=== PATIENT | female | born 1955 | race Caucasian/White ===

== ENCOUNTER 2016-10-16 15:22 | Emergency (ER) | payer OTHER ==
[~2016-10-16] VITALS: Ht 167.6 cm; Wt 55.9 kg
[~2016-10-16 15:22] MED LIST: ALPR0.5T8 PO; ALPR1TAB7 PO; BUPR100T6 PO; CALC600T12 PO; CHOL200020 PO; LAMO200T PO; Protandim PO; TRAM50TA2 PO; TRAZ-115 PO; VENL75CA PO
[2016-10-16 15:29] VITALS: BP 127/71; PULSE 77; RESP 16; O2SAT 98
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
--- NOTE | 2016-10-16 16:55 | DRSVH ---
PROCEDURE: X-RAY CERVICAL SPINE, 2 OR 3 VIEWS INDICATIONS: pain TECHNIQUE: 3 view(s) of the cervical spine were acquired. COMPARISON: None. FINDINGS: Bones: No fractures or dislocations to the T1 level. The lateral masses of C1 appear intact on the odontoid view. No suspicious bony lesions. Multilevel endplate osteophytes are present, worst at C4 -C5, C5-C6, and C6-C7, indicating degenerative disc disease. Soft tissues: No prevertebral soft tissue swelling. IMPRESSION: Degenerative disc disease. No acute fracture. No osseous lesion. If symptoms and/or clini alex suspicion for pathology persist, further assessment with repeat, or advanced imaging (e.g., CT, M RI, or bone scan) may be helpful for further assessment. Dictated by: Roby Sue M.D. on 10/16/2016 at 16:53 Approved by: Roby Sue M.D. on 10/16/2016 at 16:53
--- NOTE | 2016-10-16 16:57 | DRSVH ---
PROCEDURE: X-RAY LUMBAR SPINE, 2 OR 3 VIEW INDICATIONS: pain TECHNIQUE: 3 views of the lumbar spine were acquired. COMPARISON: None. FINDINGS: Bones: 5 [id number] vertebrae are present. There is moderate leftward curvature of the lumbar s pine. Mild grade 1 retrolisthesis of L1 on L2, L2 on L3, L3 on L4, L4 on L5, and L5 on S1 is present. Multilevel endplate osteophytes are present, worst at L3-L4, L4-L5, and L5-S1, indicating degenerati ve disc disease. Facet hypertrophy is present, worst at L3-L4, L4-L5, and L5-S1, indicating facet ost eoarthritis. No vertebral body compression fractures. No suspicious bony lesions. Soft tissues: Overlying bowel gas pattern is normal. No suspicious soft tissue calcifications. IMPRESSION: 1. Multilevel degenerative disc and facet disease. 2. No acute fracture. No osseous lesion. If symptoms and/or clinical suspicion for pathology persist, further assessment with repeat, or advanced imaging (e.g., CT, MRI, or bone scan) may be helpful for further assessment. Dictated by: Roby Sue M.D. on 10/16/2016 at 16:54 Approved by: Roby Sue M.D. on 10/16/2016 at 16:54
--- NOTE | 2016-10-16 18:03 | DRSVH ---
PROCEDURE: CT LUMBAR SPINE WITHOUT CONTRAST ([id number]) INDICATIONS: trauma TECHNIQUE: Noncontrast 3 mm thick sections acquired from the T12 level to the sacrum. Sagittal and coronal refo rmats were constructed. For radiation dose reduction, the following was used: automated exposure co ntrol. COMPARISON: None. FINDINGS: Image quality: Excellent. Bones: There is moderate levoscoliosis. normal bony alignment. No acute vertebral body compression fractures. No suspicious lytic or blastic bony lesions. Central spinal caliber is of normal overall caliber. No pars defects. There is severe degenerative disease at T12-L1, L3-L4 and L4-L5, moderat e degenerative disease at C88-C5-43 and L5-S1. Soft tissues: No retroperitoneal masses or hematomas. Visualized aorta is normal in caliber. IMPRESSION: 1. No fractures. 2. Moderate levoscoliosis and severe degenerative disc disease. Dictated by: Makenna Carlson M.D. on 10/16/2016 at 18:01 Approved by: Makenna Carlson M.D. on 10/16/2016 at 18:01
--- NOTE | 2016-10-16 18:06 | DRSVH ---
PROCEDURE: CT CERVICAL SPINE WITHOUT CONTRAST ([id number]) INDICATIONS: trauma TECHNIQUE: Noncontrast 3 mm thick sections acquired from the skull base to the T4 level. Sagittal and coronal r eformats were then constructed. For radiation dose reduction, the following was used: automated exp osure control, adjustment of mA and/or kV according to patient size. COMPARISON: [facility], CR, XR CERVICAL SPINE 2 OR 3VW, 10/16/2016, 16:19. FINDINGS: Image quality: Excellent. Bones: No fractures or dislocations. Visualized superior ribs are intact. There is degenerative di sc disease in cervical spine, most pronounced at C5-C6 and C6-C7. There is uncovertebral hypertrophy and lateral facet arthropathy scattered in cervical spine. Soft tissues: Prevertebral soft tissues are normal in thickness. No paravertebral hematomas. No ap ical pneumothoraces. IMPRESSION: 1. No fractures. 2. Degenerative changes in cervical spine. Dictated by: Makenna Carlson M.D. on 10/16/2016 at 18:04 Approved by: Makenna Carlson M.D. on 10/16/2016 at 18:04
[2016-10-16] MEDS ORDERED: TRAM50TA2 PO (18:14)
[2016-10-16] MEDS ORDERED: METH750T3 PO (18:15)
[2016-10-16] MEDS ORDERED: ONDA4TAB6 PO (18:19)
== END 2016-10-16 18:35 | disposition home or self-care (01) ==
LOC: SED 15:22
DX: S39.012A Strain of muscle, fascia and tendon of lower back, initial encounter (principal); S16.1XXA Strain of muscle, fascia and tendon at neck level, initial encounter; V53.5XXA Driver of pick-up truck or van injured in collision with car, pick-up truck or van in traffic accident, initial encounter; Y92.410 Unspecified street and highway as the place of occurrence of the external cause; Y93.89 Activity, other specified; Y99.8 Other external cause status; I10 Essential (primary) hypertension; F41.9 Anxiety disorder, unspecified; F32.9 Major depressive disorder, single episode, unspecified; Z88.8 Allergy status to other drugs, medicaments and biological substances

== ENCOUNTER 2016-11-14 11:05 | Emergency (ER) | payer OTHER ==
[~2016-11-14] VITALS: Ht 165.1 cm; Wt 56.8 kg
[~2016-11-14 11:05] MED LIST changes: +METH750T3 PO; +ONDA4TAB6 PO
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
[2016-11-14] MEDS ORDERED: oxyCODONE-Acetamin 10-325 mg Tablet PO ONE (11:15)
[2016-11-14] MEDS ORDERED: LORazepam 1 mg Tablet PO ONE (11:15)
[2016-11-14 11:16] VITALS: BP 148/94; PULSE 73; RESP 20; O2SAT 100
[2016-11-14] MEDS ORDERED: LORA1TAB PO (12:34)
[2016-11-14] MEDS ORDERED: OXYC1TAB24 PO (12:34)
[2016-11-14 12:51] VITALS: BP 143/94; PULSE 67; RESP 16; O2SAT 100
== END 2016-11-14 12:52 | disposition home or self-care (01) ==
LOC: SED 11:05
DX: M62.830 Muscle spasm of back (principal); V49.9XXA Car occupant (driver) (passenger) injured in unspecified traffic accident, initial encounter; Y92.410 Unspecified street and highway as the place of occurrence of the external cause; Y93.89 Activity, other specified; Y99.8 Other external cause status; Z88.8 Allergy status to other drugs, medicaments and biological substances

== ENCOUNTER 2017-02-21 10:21 | Observation (INO) | payer OTHER ==
[~2017-02-21] VITALS: Ht 167.6 cm; Wt 58.7 kg
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
[~2017-02-21 10:21] MED LIST changes: +LORA1TAB PO; +OXYC1TAB24 PO
[2017-02-21] MEDS ORDERED: 0.9% Sodium Chloride 1,000 ML IV ONE ×2 (10:24→12:50)
[2017-02-21] MEDS ORDERED: HYDROmorphone 1 mg/mL Inj IVPUSH PRN (10:25)
[2017-02-21] MEDS ORDERED: Ondansetron 2 mg/mL 2 mL Inj IVPUSH PRN ×2 (10:25→16:55)
[2017-02-21 10:28] VITALS: BP 190/108; PULSE 78; RESP 14; O2SAT 98
[2017-02-21] MEDS ORDERED: Ketamine 100 mg/mL 5 mL Inj IV ONE ×2 (10:50→11:00)
--- NOTE | 2017-02-21 11:16 | DRSVH ---
PROCEDURE: X-RAY LEFT SHOULDER, ONE VIEW ([id number]) INDICATIONS: trauma TECHNIQUE: Single view of the left shoulder acquired. COMPARISON: None. FINDINGS: Bones: There is anterior dislocation of the left glenohumeral joint. There is associated depression of the humeral head suggestive of a Hill-Sachs lesion. Small bony fragments are demonstrated along the glenoid compatible with glenoid fracture of indeterminate acuity. No definite acute rib fracture . There are are a few healed left rib fractures noted. Soft tissues: No suspicious soft tissue calcifications. IMPRESSION: 1. Anterior dislocation of the left glenohumeral joint with Hill-Sachs lesion and glenoid fractures of indeterminate acuity. Dictated by: Oli Fajardo M.D. on 02/21/2017 at 11:11 Approved by: Oli Fajardo M.D. on 02/21/2017 at 11:14
[2017-02-21 11:26] VITALS: BP 121/120; PULSE 93; O2SAT 100
--- NOTE | 2017-02-21 11:32 | DRSVH ---
PROCEDURE: X-RAY CHEST ONE VIEW, PORTABLE ([id number]) INDICATIONS: fall TECHNIQUE: One view of the chest was acquired. COMPARISON: None. FINDINGS: Surgical changes and devices: None. Lungs and pleura: No pleural effusions or pneumothorax. Lungs are clear. Mediastinum: Mediastinal contours appear mildly prominent likely due to rotation and portable techni que. Heart size is normal. Bones and chest wall: There is anterior dislocation of the left glenohumeral joint with flattening o f the humeral head compatible with Hill-Sachs lesion. There are also fractures of the glenoid of ind eterminate acuity. There are a few healed left rib fractures noted. Overlying soft tissues appear u nremarkable. IMPRESSION: 1. No acute cardiopulmonary disease. 2. Left shoulder anterior dislocation as described. Dictated by: Oli Fajardo M.D. on 02/21/2017 at 11:14 Approved by: Oli Fajardo M.D. on 02/21/2017 at 11:30
[2017-02-21 12:03] LABS: BASOPHILS % (AUTO) 0.2 % (0-3); EOSINOPHILS % (AUTO) 0.7 % (0-5); MONOCYTES % (AUTO) 5.3 % (4-12); Mean Corpuscular Hemoglobin 29.1 pg (27.0-35.0); Mean Corpuscular Volume 87.7 fL (81-100); NEUTROPHILS % (AUTO) 84.4 % (40-74); Platelet Count 246 bil/L (150-400)
--- NOTE | 2017-02-21 12:04 | DRSVH ---
PROCEDURE: X-RAY PELVIS, ONE OR TWO VIEWS ([id number]) INDICATIONS: FALL TECHNIQUE: 1 view(s) of the pelvis acquired. COMPARISON: None. FINDINGS: Bones: Evaluation for pelvic fractures is limited related to overlying metallic structures (closing). However, no displaced pelvic fractures are evident. Degenerative changes of the lumbosacral spine and bilateral hips are present. Soft tissues: Visualized bowel gas pattern is normal. No suspicious soft tissue calcifications. IMPRESSION: No displaced pelvic fractures are evident. If there is high clinical concern for an acut e pelvic fracture, please consider CT imaging of the pelvis for further evaluation. Dictated by: Victoriano Baird M.D. on 02/21/2017 at 11:02 Approved by: Victoriano Baird M.D. on 02/21/2017 at 11:03
--- NOTE | 2017-02-21 12:12 | DRSVH ---
PROCEDURE: X-RAY LEFT SHOULDER, MINIMUM TWO VIEWS ([id number]) INDICATIONS: fall TECHNIQUE: 3 views of the shoulder were acquired. COMPARISON: [facility], CR, XR SHOULDER 1VW LT, 02/21/2017, 10:29. FINDINGS: Bones: There is persistent anterior dislocation of the left glenohumeral joint with impaction of the glenoid along the posterior humeral head within a Hill-Sachs lesion. There is osteophytosis of the humeral head inferiorly. Old healed left rib fractures are again noted. Soft tissues: There are periarticular calcifications along the glenoid suggestive of prior glenoid f ractures or heterotopic ossification. IMPRESSION: 1. Persistent anterior dislocation of the left glenohumeral joint as described. 2 grade Hill-Sachs lesion of the humeral head redemonstrated as well as probable small fracture fragm ents along the glenoid of indeterminate acuity. Dictated by: Oli Fajardo M.D. on 02/21/2017 at 12:08 Approved by: Oli Fajardo M.D. on 02/21/2017 at 12:10
--- NOTE | 2017-02-21 12:16 | DRSVH ---
PROCEDURE: X-RAY LEFT HUMERUS, MINIMUM TWO VIEWS ([id number]) INDICATIONS: FALL TECHNIQUE: 3 views of the humerus were acquired. COMPARISON: None. FINDINGS: Bones: There is anterior dislocation of the glenohumeral joint with an impaction fracture of the pos terior humeral head consistent with Hill-Sachs lesion. There are also small fracture fragments along the posterior rim of the glenoid which are likely nonacute. No fracture of the humeral shaft or dis raquel humerus. Soft tissues: There are small periarticular calcifications along the posterior glenohumeral joint con sistent with small fracture fragments or heterotopic ossification. IMPRESSION: 1. Anterior dislocation of the left glenohumeral joint with a Hill-Sachs impaction fracture of the h umeral head. Dictated by: Oli Fajardo M.D. on 02/21/2017 at 12:10 Approved by: Oli Fajardo M.D. on 02/21/2017 at 12:14
[2017-02-21 12:17] LABS: INR 0.96 ratio
[2017-02-21] MEDS ORDERED: MethylprednisoLONE Sodium Succinate 62.5 mg/mL 2 mL Inj IVPUSH ONE (12:50)
[2017-02-21] MEDS ORDERED: Rocuronium 10 mg/mL 5 mL Inj IVPUSH ONE (12:50)
[2017-02-21] MEDS ORDERED: Famotidine 10 mg/mL 2 mL Inj IVPUSH ONE (12:50)
--- NOTE | 2017-02-21 13:12 | DRSVH ---
PROCEDURE: X-RAY CHEST ONE VIEW, PORTABLE ([id number]) INDICATIONS: post intubation TECHNIQUE: One view of the chest was acquired. COMPARISON: [facility], CR, XR CHEST 1VW (PORTABLE), 02/21/2017, 10:29. FINDINGS: Surgical changes and devices: There has been placement of an endotracheal tube, positioned approximat stefano 3 cm above the sammi. A nasogastric tube extends below the diaphragm. Lungs and pleura: No pleural effusions or pneumothorax. Lungs are clear. Mediastinum: Mediastinal contours appear normal. Heart size is normal. Bones and chest wall: No suspicious bony lesions. The left shoulder appears to be relocated. Overl gerhard soft tissues appear unremarkable. IMPRESSION: 1. Tubes and lines as described. 2. No pneumonia, effusion, or definite pneumothorax. Dictated by: Victoriano Baird M.D. on 02/21/2017 at 12:10 Approved by: Victoriano Baird M.D. on 02/21/2017 at 12:11
[2017-02-21 13:35] VITALS: O2SAT 100
[2017-02-21] MEDS: Propofol Inj 1,000,000 MCG in IV Premix 1 EACH IV SCH (13:35)
--- NOTE | 2017-02-21 13:36 | DRSVH ---
PROCEDURE: CT BRAIN WITHOUT CONTRAST ([id number]) INDICATIONS: trauma TECHNIQUE: Noncontrast 4.5 mm thick angled axial sections acquired from the foramen magnum to the vertex, with c oronal reformats. COMPARISON: None. FINDINGS: Image quality: Diagnostic. Brain: There is no acute intra-axial or extra-axial hemorrhage. No extra-axial fluid collection is i dentified. There is no midline shift or mass effect. The orbits are grossly unremarkable. No large areas of diffusely decreased attenuation are evident within the brain to suggest diffuse cer ebral edema. No focal parenchymal abnormality is identified. The ventricles and cortical sulci are age-appropriate. Bones: Calvarium and visualized facial bones are grossly intact. The imaged paranasal sinuses and m astoid air cells are clear. Incidental note is made of a nasogastric tube and an endotracheal tube. IMPRESSION: Negative head CT. No acute intracranial hemorrhage is evident. Dictated by: Victoriano Baird M.D. on 02/21/2017 at 12:33 Approved by: Victoriano Baird M.D. on 02/21/2017 at 12:35
--- NOTE | 2017-02-21 13:41 | DRSVH ---
PROCEDURE: CT CERVICAL SPINE WITHOUT CONTRAST ([id number]) INDICATIONS: neck pain post fall TECHNIQUE: Noncontrast 3 mm thick sections acquired from the skull base to the T4 level. Sagittal and coronal r eformats were then constructed. For radiation dose reduction, the following was used: automated exp osure control, adjustment of mA and/or kV according to patient size. COMPARISON: [facility], CT, CT CERVICAL SPINE WO CON, 10/16/2016, 17:43. FINDINGS: Image quality: Diagnostic. Bones: The craniocervical and atlantoaxial joints are well-maintained. The odontoid is intact. The vertebral body heights and prevertebral soft tissues are within normal limits throughout the cervical spine without evidence to suggest acute compression fracture. No other fractures are evident within the cervical spine. The bone mineralization is within normal limits. Incidental note is made of se kala degenerative changes involving the bilateral temporomandibular joints (left greater than right). Advanced multilevel degenerative changes of the cervical spine are present demonstrating multilevel d isc height loss, endplate sclerosis, posterior disc osteophyte complexes, and degenerative cystic riana nges extending from C4-C7. Associated facet arthrosis also is present. Soft tissues: No prevertebral soft tissue swelling. The imaged lung apices are clear. Imaged porti ons of the mediastinum are unremarkable. A nasogastric tube in an endotracheal tube is seen in the e sophagus and trachea respectively. Otherwise, the remainder of the imaged soft tissues of the neck ar e within normal limits. IMPRESSION: 1. No acute fracture of the cervical spine. 2. Advanced degenerative changes of the cervical spine and temporomandibular joints. 3. Endotracheal tube and nasogastric tube appear to be appropriately positioned. Dictated by: Victoriano Baird M.D. on 02/21/2017 at 12:36 Approved by: Victoriano Baird M.D. on 02/21/2017 at 12:39
--- NOTE | 2017-02-21 13:46 | ABG ---
DateTimeAnalyzed 13:42:00 -_ pH ____7.385 - 7.350 7.450 pCO2 ___34.9__ -mmHg 35.0 45.0 pO2 431 -mmHg 69.0 116 HCO3- ___20.4__ -mmol/L 22.0 26.0 ABE ___-3.5__ -mmol/L -2.0 2.0 tHb ___11.1__ -g/dL O2Hb ___97.8__ -% COHb ____0.3__ -% MetHb ____1.4__ -% sO2 ___99.5__ -% FIO2 __100.0__ -% PRVC 450 - PEEP ____5.0__ -cmH2O Set_RR ___16.0__ -b/min Drawn By K[facility] - Date/Time Notified____ 13:46:00 -_ Oxygen Device 1 VENTILATOR - Notified By [facility] - Notified Whom O'beatrice, Anthony -____ B 755 -mmHg tO2 ___16.3__ -Vol% Thom test _Positive -
--- NOTE | 2017-02-21 13:51 | DRSVH ---
PROCEDURE: CT CHEST, ABDOMEN AND PELVIS WITH CONTRAST ([id number]) INDICATIONS: trauma, tachycardia TECHNIQUE: After the administration of intravenous contrast, 5 mm thick sections acquired from the lung apices t o the symphysis. 5 mm thick coronal and sagittal reformats were acquired. Additional 7 mm thick cor onal maximum intensity projection (MIP) reformats acquired through the lungs. Optional 10-minute del ayed imaging may be performed from the kidneys to the bladder. For radiation dose reduction, the fol lowing was used: automated exposure control, adjustment of mA and/or kV according to patient size. COMPARISON: [facility], CT, CT LUMBAR SPINE WO CON, 10/16/2016, 17:43. FINDINGS: Image quality: Excellent. CHEST: Lungs: Mild atelectasis is identified within the posterior bilateral lung bases. No definite pulmona ry contusions are observed. There is no pneumothorax or pleural effusion. An endotracheal tube is p ositioned with the tip located above the level of the sammi. Mediastinum: No mediastinal hematomas. Heart size is normal. No pericardial effusion. Thoracic ao rta and pulmonary arteries demonstrate normal size and enhancement. There is aortic atherosclerosis. No mediastinal or hilar adenopathy. Esophagus is normal in caliber. No hiatal hernia. A nasogastr ic tube is seen within the esophagus. Chest wall: No rib fractures. No subcutaneous emphysema. No axillary or supraclavicular adenopathy . No acute fractures of the ribs or spine are evident. Patient's known left shoulder fracture is no t well evaluated and only partially included on this exam. Thyroid gland is prominent in size withou t a definite nodule. ABDOMEN: Solid organs: The spleen, adrenals, kidneys, liver, and pancreas are within normal limits. Mild enla rgement of the distal pancreatic and common bile duct are present. The gallbladder is borderline pro minent in size. No solid organ contusions or lacerations are evident. No subcapsular hematomas or f luid adjacent to the upper abdominal solid organs are evident. Peritoneum and bowel: No free fluid or air. Unenhanced bowel loops demonstrate normal wall thicknes s and caliber. Moderate residual stool is seen within the colon. There is colonic diverticulosis. The nasogastric tube is positioned within the artery of the stomach. Nodes and vessels: No retroperitoneal or mesenteric adenopathy. Aorta and inferior vena cava are no rmal in size and enhancement. There is aortic atherosclerosis. Bones: Advanced degenerative changes of the lumbar spine are present, more prominent at the level of T12-L1. Prominent posteriorly positioned bony protuberances evident along the posterior margin of th e L1 vertebral body, unchanged since 10/16/16 resulting in central canal stenosis. No acute fractures or suspicious osseous lesions are evident. PELVIS: Genitourinary: Bladder wall thickness is normal. The uterus appears to be surgically absent. Miscellaneous: No inguinal hernias or adenopathy. No free fluid or loculated fluid collection is ev ident. No free air is identified. Bones: Pelvic ring and hip joints appear intact. No vertebral compression fractures. IMPRESSION: 1. No acute trauma to the chest, abdomen, or pelvis is evident. There are no fractures (with the ex ception of the left shoulder fracture), solid organ contusions, lacerations, free fluid, or hematomas . 2. Mild bibasilar atelectasis within the lungs. Endotracheal tube and nasogastric tube are properly positioned. 4. Nonspecific prominence of the common bile duct and distal main pancreatic duct. The need for fur ther evaluation utilizing MRCP may be determined clinically. 5. Distal colonic diverticulosis. No bowel obstruction. 6. Prominent central canal stenosis related to a prominent bony protuberance at the level of L1 exte nding into the central canal, unchanged since prior exam. Dictated by: Victoriano Baird M.D. on 02/21/2017 at 12:41 Approved by: Victoriano Baird M.D. on 02/21/2017 at 12:49
--- NOTE | 2017-02-21 13:53 | DRSVH ---
PROCEDURE: CT SHOULDER LEFT W/O CONTRAST ([id number]) INDICATIONS: post reduction TECHNIQUE: Noncontrast 1-1.5 mm thick sections acquired from the acromioclavicular joint to the inferior scapula , with coronal and sagittal reformatting. COMPARISON: [facility], CR, XR SHOULDER MIN 2VW LT, 02/21/2017, 11:24. FINDINGS: Image quality: Diagnostic. Bones: There is a minimally comminuted fracture present involving the greater tuberosity of the humer al head. The glenoid appears to be intact. Small ossific/calcific densities within the glenohumeral joint may be degenerative and appear to be well-corticated. Advanced degenerative changes of the gl enohumeral joint and moderate degenerative changes of the chromic clavicular joint are present. No s uspicious osseous lesions are evident involving the included osseous structures of the left shoulder. Soft tissues: Mild soft tissue edema overlying the left shoulder is present. No soft tissue masses a re evident. IMPRESSION: 1. Mildly comminuted fracture of the greater tuberosity of the humeral head. The glenoid appears in tact. 2. Small ossific/calcific densities within the glenohumeral joint probably are degenerative. Howeve r, subtle fracture fragments within the joint space are difficult to exclude. 3. Advanced degenerative changes of the glenohumeral joint. Dictated by: Victoriano Baird M.D. on 02/21/2017 at 12:49 Approved by: Victoriano Baird M.D. on 02/21/2017 at 12:52
[2017-02-21] MEDS ORDERED: MULT-1065 PO (15:28)
[2017-02-21] MEDS ORDERED: CHOL5000 PO (15:28)
[2017-02-21] MEDS ORDERED: IBUP800T28 PO (15:39)
[2017-02-21] MEDS ORDERED: Famotidine 20 mg/50 mL NS Premix IV ONE (16:12)
[2017-02-21] MEDS ORDERED: TIZA2CAP9 PO (16:15)
[2017-02-21] MEDS ORDERED: HYDR-4003 PO (16:15)
[2017-02-21] MEDS ORDERED: BUPR150T12 PO (16:15)
[2017-02-21] MEDS ORDERED: TRAZ-118 PO (16:15)
[2017-02-21] MEDS ORDERED: Rocuronium 10 mg/mL 5 mL Inj ONE (16:19)
[2017-02-21] MEDS ORDERED: Propofol 10,000 mCg/mL 20 mL Inj ONE (16:19)
[2017-02-21] MEDS ORDERED: FLUT9.9S NS (16:22)
[2017-02-21 16:40] LABS: APPEARANCE,URINE HAZY (CLEAR,HAZY); COLOR,URINE YELLOW (YELLOW); PH,URINE 7.5 (5.0-8.0)
[2017-02-21 16:42] LABS: OCCULT BLOOD,URINE NEGATIVE (NEGATIVE); UROBILINOGEN,URINE NORMAL (NORMAL)
[2017-02-21] MEDS ORDERED: Polyethylene Glycol (PEG) 17 Gm Powder PO PRN (16:55)
[2017-02-21] MEDS ORDERED: Alum-Mag Hydrox-Simeth 30 mL Suspension PO PRN (16:55)
[2017-02-21 17:56] VITALS: BP 175/80; PULSE 91; RESP 12; O2SAT 96
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
[2017-02-21] MEDS: 0.9% Sodium Chloride 1,000 ML IV SCH (18:30)
[2017-02-21 18:41] VITALS: PULSE 102
[2017-02-21 20:07] VITALS: BP 146/88; PULSE 86; RESP 16; O2SAT 96
[2017-02-21] MEDS: Pantoprazole 20 mg ER24 Tablet PO SCH (20:47)
[2017-02-22 01:18] VITALS: BP 121/81; PULSE 87; RESP 16; O2SAT 96
[2017-02-22] MEDS: 0.9% Sodium Chloride 1,000 ML IV SCH ×2 (04:20→12:55)
[2017-02-22 05:27] VITALS: BP 135/76; PULSE 82; RESP 18; O2SAT 95
[2017-02-22 05:28] LABS: BASOPHILS % (AUTO) 0 % (0-3); EOSINOPHILS % (AUTO) 0.1 % (0-5); Mean Corpuscular Hemoglobin 29.1 pg (27.0-35.0); Mean Corpuscular Volume 88.4 fL (81-100); Platelet Count 259 bil/L (150-400)
[2017-02-22 06:39] VITALS: PULSE 80
[2017-02-22 08:00] VITALS: PULSE 85
[2017-02-22] MEDS: Pantoprazole 20 mg ER24 Tablet PO SCH (08:56)
--- NOTE | 2017-02-22 10:31 | PCM.DIMED ---
Discharge Instructions Date of Service February 22, 2017 Dates of Hospitalization February 21, 2017 at 16:29 Discharge Diagnosis Discharge Diagnosis # Brief acute respiratory failure requiring intubation with urticarial anterior chest wall rash following ketamine and shoulder reduction -Due to fat embolism versus anaphylactic reaction to ketamine. # left shoulder fracture dislocation s/p reduction in ED # anxiety/depression Diet No restrictions Activity Limited until seen by PCP Call your provider Fever or Chills, Shortness of breath, Bleeding, Chest pain, Vomitting, Excessive diarrhea, Weakness (unilateral) Patient Instructions You were hospitalized due to ground-level fall and sustained left shoulder fracture dislocation. Left shoulder reduced in the emergency room.you had brief respiratory failure and urticarial skin rash on anterior chest immediately following Ketmine administration and shoulder reduction. It is either due to anaphylactic reaction to ketamine or fat embolism.you were successfully extubated in the emergency room after treatment with steroid, epinephrine, Benadryl. Please avoid ketamine is the future as it can cause anaphylaxis. Please follow-up with Dr. Derik Guardado orthopedic surgeon outpatient for your left shoulder in 1 week. Please continue using left arm sling. Please follow-up with PCP in 1 week and discuss hospitalization. Follow-up Provider: Naya Osborne MD Follow-up with PCP in: 1 week Provider: Derik Guardado DO Follow-up in: 1 week Kapil Yuen MD February 22, 2017 10:31
[2017-02-22] MEDS ORDERED: HYDR-4003 PO (10:32)
[2017-02-22 11:29] VITALS: BP 143/82; PULSE 74; RESP 16; O2SAT 98
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
[2017-02-22] MEDS: Propofol Inj 1,000,000 MCG in IV Premix 1 EACH IV SCH (13:35)
== END 2017-02-22 16:20 | disposition home or self-care (01) ==
LOC: SED 10:21 → OSC 16:29
PROVIDERS: ADMIT Internal Medicine; ATTEND Internal Medicine
DX: J96.00 Acute respiratory failure, unspecified whether with hypoxia or hypercapnia (principal); R21 Rash and other nonspecific skin eruption; S42.252A Displaced fracture of greater tuberosity of left humerus, initial encounter for closed fracture; V48.4XXA Person boarding or alighting a car injured in noncollision transport accident, initial encounter; Y93.89 Activity, other specified; Y92.008 Other place in unspecified non-institutional (private) residence as the place of occurrence of the external cause; Y99.8 Other external cause status; F32.9 Major depressive disorder, single episode, unspecified; F41.9 Anxiety disorder, unspecified; Z85.3 Personal history of malignant neoplasm of breast
CPT/HCPCS: 23650; 31500; 36415; 36620; 70450; 71010; 71260; 72125; 72170; 73020; 73030; 73060; 73200; 74177; 80053; 81001; 82375; 82803; 83735; 85014; 85018; 85025; 85384; 85610; 85730; 86850; 94002; 94799; 96372; 96374; 96375; 96376; 99152; 99291; 99292; G0378; J0171; J1170; J1200; J2060; J2405; J2930; J7030; Q9967